=== PATIENT | female | born 1965 | race Caucasian/White ===

== ENCOUNTER 2016-12-26 17:56 | Inpatient (IN) | payer MEDICAID ==
[~2016-12-26] VITALS: Ht 160 cm; Wt 78.0 kg
[2016-12-26 19:20] LABS: Basophils # (auto) 0.1 uL; Basophils % (auto) 0.8 % (0.0-2.0); Eosinophils # (auto) 0.1 uL; Eosinophils % (auto) 0.7 % (0.0-7.0); Hematocrit 15.6 % (36.0-46.0); Lymphocytes # (auto) 1.9 uL; Lymphocytes % (auto) 17.7 % (10.0-50.0); Mean Corpuscular Hemoglobin 25.8 pg (28.0-32.0); Mean Corpuscular Hgb Conc. 31.2 g/dL (32.0-36.0); Mean Corpuscular Volume 82.6 fL (80.0-100.0); Mean Platelet Volume 8.6 fL (6.9-10.8); Monocytes # (auto) 0.6 uL; Monocytes % (auto) 5.7 % (0.0-12.0); Neutrophils # (auto) 8.3 uL; Neutrophils % (auto) 75.1 % (37.0-80.0); Nucleated Red Blood Cells % 0.7 %; Platelet Count (auto) 167 10^3/uL (140-450); Red Cell Distribution Width 17.9 % (11.8-14.3)
[2016-12-26 19:24] LABS: Hemoglobin 4.9 g/dL (12.2-16.2)
[2016-12-26 19:36] LABS: Albumin 2.4 g/dL (3.4-5.0); Bilirubin, Total 0.6 mg/dL (0.2-1.0); Calcium 7.8 mg/dL (8.5-10.1); Potassium 3.5 mmol/L (3.5-5.1); Total Protein 5.4 g/dL (6.4-8.2)
[2016-12-26 19:52] LABS: INR 1.24 (0.9-1.15); Partial Thromboplastin Time 29.2 sec (22.64-33.71); Prothrombin Time 13.6 sec (9.37-12.3)
[2016-12-27] VITALS (15 sets, daily range): BP systolic 113–157; BP diastolic 46–86
[2016-12-27] MEDS ORDERED: metroNIDAZOLE 500MG/100ML 100 ML IV ONE (00:15)
[2016-12-27] MEDS ORDERED: cefTRIAXone 1GM/50ML D5W 50 ML IV ONE (00:15)
[2016-12-27 00:25] LABS: Anisocytosis Slight; Hypochromia Slight; Ovalocytes FEW; Platelet Estimate Adequate
[2016-12-27] MEDS ORDERED: ONDANSETRON HCL 4 MG/2 ML VIAL IV ONE (02:00)
[2016-12-27 03:02] LABS: Urine Bilirubin Negative (Negative); Urine Blood Negative /uL (Negative); Urine Color Yellow (Yellow); Urine Glucose Normal (Normal); Urine Ketone Negative (Negative); Urine Nitrite Negative (Negative); Urine RBC <1 /hpf (0 - 4); Urine Squamous Epithelial Cell FEW /hpf (<5); Urine Urobilinogen Normal (Negative); Urine pH 5.5 (5.0-8.0)
[2016-12-27] MEDS ORDERED: SODIUM CHLORIDE 0.9% 1,000 ML IV SCH (03:32)
[2016-12-27] MEDS ORDERED: ONDANSETRON HCL 4 MG/2 ML VIAL IV PRN (03:45)
[2016-12-27] MEDS ORDERED: NITROGLYCERIN 0.4 MG SL TAB SL PRN (03:45)
[2016-12-27] MEDS ORDERED: ACETAMINOPHEN 325 MG TAB PO PRN (03:45)
[2016-12-27] MEDS ORDERED: CALCIUM GLUC 4.65meq/50ml D5AE 50 ML IV ONE (03:45)
[2016-12-27] MEDS: PANTOPRAZOLE 80 MG in SODIUM CHL 0.9% 60 ML IV SCH ×3 (03:45→22:03)
[2016-12-27] MEDS ORDERED: MORPHINE SULF INJ 2 MG/ML SYRINGE 1ML IV PRN ×2 (03:45)
[2016-12-27] MEDS ORDERED: PANTOPRAZOLE 40 MG/10 ML VIAL IV ONE (04:31)
[2016-12-27] MEDS ORDERED: metroNIDAZOLE 500MG/100ML 100 ML IV SCH (06:00)
[2016-12-27 06:24] LABS: Hematocrit 19.1 % (36.0-46.0)
[2016-12-27 06:33] LABS: Hemoglobin 6.3 g/dL (12.2-16.2)
[2016-12-27 06:37] LABS: INR 1.29 (0.9-1.15); Partial Thromboplastin Time 29.9 sec (22.64-33.71); Prothrombin Time 14.1 sec (9.37-12.3)
[2016-12-27] MEDS: FUROSEMIDE 20 MG TAB PO SCH (10:08)
[2016-12-27] MEDS: LISINOPRIL 10 MG TAB PO SCH (10:08)
[2016-12-27] MEDS: SODIUM CHLORIDE 0.9% 1,000 ML IV SCH (14:50)
[2016-12-27] MEDS ORDERED: PATIENTS OWN MEDICATION (simvastatin 20 MG) PO SCH ×2 (22:00)
[2016-12-27] MEDS ORDERED: ATORVASTATIN 20 MG TAB PO SCH (22:00)
[2016-12-27] MEDS ORDERED: cefTRIAXone 1GM/50ML D5W 50 ML IV SCH (22:00)
[2016-12-27 23:13] LABS: Hematocrit 30.5 % (36.0-46.0); Hemoglobin 10.3 g/dL (12.2-16.2)
[2016-12-28] VITALS: BP 124/86
[2016-12-28 04:24] VITALS: BP 145/67
[2016-12-28 06:31] LABS: Basophils # (auto) 0 uL; Basophils % (auto) 0.7 % (0.0-2.0); Eosinophils # (auto) 0.1 uL; Eosinophils % (auto) 1.9 % (0.0-7.0); Hematocrit 26.7 % (36.0-46.0); Hemoglobin 9.2 g/dL (12.2-16.2); Lymphocytes % (auto) 23.6 % (10.0-50.0); Mean Corpuscular Hgb Conc. 34.4 g/dL (32.0-36.0); Mean Corpuscular Volume 84.2 fL (80.0-100.0); Mean Platelet Volume 8.5 fL (6.9-10.8); Monocytes # (auto) 0.3 uL; Neutrophils # (auto) 2.8 uL; Neutrophils % (auto) 66.8 % (37.0-80.0); Nucleated Red Blood Cells % 0.3 %; Platelet Count (auto) 76 10^3/uL (140-450); Red Cell Distribution Width 15.8 % (11.8-14.3); White Blood Cell 4.2 10^3/uL (4.4-10.8)
[2016-12-28 07:02] LABS: Albumin 2.3 g/dL (3.4-5.0); BUN/Creatinine Ratio 40.4; Bilirubin, Total 1.1 mg/dL (0.2-1.0); Calcium 7.3 mg/dL (8.5-10.1); Magnesium 2.1 mg/dL (1.6-2.6); Potassium 3.1 mmol/L (3.5-5.1); Total Protein 5.1 g/dL (6.4-8.2)
[2016-12-28 08:00] VITALS: BP 134/72
[2016-12-28] MEDS: PANTOPRAZOLE 80 MG in SODIUM CHL 0.9% 60 ML IV SCH (09:45)
[2016-12-28] MEDS ORDERED: POTASSIUM CHL 20 Meq TABLET PO ONE (11:15)
[2016-12-28] MEDS: FUROSEMIDE 20 MG TAB PO SCH (11:24)
[2016-12-28] MEDS: LISINOPRIL 10 MG TAB PO SCH (11:24)
[2016-12-28 12:00] VITALS: BP 125/67
[2016-12-28 16:00] VITALS: BP 129/57
[2016-12-28] MEDS: SODIUM CHLORIDE 0.9% 1,000 ML IV SCH ×2 (18:00→23:49)
[2016-12-28 20:00] VITALS: BP 137/70
[2016-12-28] MEDS: PANTOPRAZOLE 40 MG/10 ML VIAL IV SCH (21:51)
[2016-12-29] VITALS: BP 141/77
[2016-12-29 04:00] VITALS: BP 131/61
[2016-12-29 05:47] LABS: Hematocrit 26.5 % (36.0-46.0); Hemoglobin 9.1 g/dL (12.2-16.2)
[2016-12-29 08:00] VITALS: BP 137/67
[2016-12-29] MEDS ORDERED: SPIRONOLACTONE 25 MG TAB PO ONE (09:45)
[2016-12-29] MEDS: PANTOPRAZOLE 40 MG/10 ML VIAL IV SCH ×2 (10:00→21:49)
[2016-12-29] MEDS: FUROSEMIDE 20 MG TAB PO SCH (11:27)
[2016-12-29] MEDS: POTASSIUM CHL 20 Meq TABLET PO SCH (11:27)
[2016-12-29] MEDS: LISINOPRIL 10 MG TAB PO SCH (11:28)
[2016-12-29 11:57] VITALS: BP 108/58
[2016-12-29 16:00] VITALS: BP 121/62
[2016-12-29] MEDS: SODIUM CHLORIDE 0.9% 1,000 ML IV SCH (16:29)
[2016-12-29] MEDS: SPIRONOLACTONE 25 MG TAB PO SCH (18:00)
[2016-12-29 20:00] VITALS: BP 111/67
[2016-12-30] VITALS (7 sets, daily range): BP systolic 121–140; BP diastolic 53–72
[2016-12-30] MEDS: SPIRONOLACTONE 25 MG TAB PO SCH ×2 (06:18→18:19)
[2016-12-30 06:46] LABS: Basophils # (auto) 0 uL; Basophils % (auto) 0.8 % (0.0-2.0); Eosinophils # (auto) 0.1 uL; Eosinophils % (auto) 2.1 % (0.0-7.0); Hematocrit 26.2 % (36.0-46.0); Hemoglobin 8.8 g/dL (12.2-16.2); Lymphocytes # (auto) 1.1 uL; Lymphocytes % (auto) 28.8 % (10.0-50.0); Mean Corpuscular Hemoglobin 28.8 pg (28.0-32.0); Mean Corpuscular Hgb Conc. 33.5 g/dL (32.0-36.0); Mean Platelet Volume 8.6 fL (6.9-10.8); Monocytes # (auto) 0.3 uL; Monocytes % (auto) 7.9 % (0.0-12.0); Neutrophils # (auto) 2.3 uL; Neutrophils % (auto) 60.4 % (37.0-80.0); Nucleated Red Blood Cells % 0.1 %; Platelet Count (auto) 73 10^3/uL (140-450); Red Cell Distribution Width 16.2 % (11.8-14.3); White Blood Cell 3.9 10^3/uL (4.4-10.8)
[2016-12-30 06:49] LABS: INR 1.2 (0.9-1.15); Partial Thromboplastin Time 27.8 sec (22.64-33.71); Prothrombin Time 13.1 sec (9.37-12.3)
[2016-12-30 06:54] LABS: Albumin 2.2 g/dL (3.4-5.0); Calcium 7.4 mg/dL (8.5-10.1); Potassium 3.4 mmol/L (3.5-5.1)
[2016-12-30 07:05] LABS: Bilirubin, Total 0.8 mg/dL (0.2-1.0); Total Protein 4.8 g/dL (6.4-8.2)
[2016-12-30] MEDS ORDERED: LIDOCAINE VISCOUS 2% 15ML UD ONE (08:18)
[2016-12-30] MEDS ORDERED: MIDAZOLAM HCL 5 MG/ML-1ML VIAL ONE (08:18)
[2016-12-30] MEDS ORDERED: SODIUM CHLORIDE LOCK 10 ML ONE (08:18)
[2016-12-30] MEDS ORDERED: fentaNYL CITRATE 100 MCG/2 ML VL ONE (08:19)
[2016-12-30] MEDS ORDERED: diphenhdrAMINE HCL 50 MG/1 ML VL ONE (08:19)
[2016-12-30] MEDS: POTASSIUM CHL 20 Meq TABLET PO SCH (10:48)
[2016-12-30] MEDS: SODIUM CHLORIDE 0.9% 1,000 ML IV SCH (10:48)
[2016-12-30] MEDS: LISINOPRIL 10 MG TAB PO SCH (10:48)
[2016-12-30] MEDS: FUROSEMIDE 20 MG TAB PO SCH (10:48)
[2016-12-30] MEDS: PANTOPRAZOLE 40 MG/10 ML VIAL IV SCH (10:50)
[2016-12-30] MEDS ORDERED: POTASSIUM CHL 20 Meq TABLET PO ONE (12:30)
[2016-12-31] VITALS (9 sets, daily range): BP systolic 100–150; BP diastolic 57–75
[2016-12-31] MEDS: SODIUM CHLORIDE 0.9% 1,000 ML IV SCH (01:50)
[2016-12-31] MEDS: SPIRONOLACTONE 25 MG TAB PO SCH ×2 (05:39→17:47)
[2016-12-31 07:27] LABS: Hematocrit 26.1 % (36.0-46.0); Hemoglobin 8.5 g/dL (12.2-16.2)
[2016-12-31] MEDS: LISINOPRIL 10 MG TAB PO SCH (09:17)
[2016-12-31] MEDS: FUROSEMIDE 20 MG TAB PO SCH (09:18)
[2016-12-31] MEDS: POTASSIUM CHL 20 Meq TABLET PO SCH (09:18)
[2016-12-31] MEDS ORDERED: POTASSIUM CHL 20 Meq TABLET PO ONE (12:30)
[2016-12-31] MEDS ORDERED: LACT10SO3 PO ×2 (12:43→13:03)
[2016-12-31] MEDS ORDERED: PROP60CA8 PO (12:43)
[2016-12-31] MEDS ORDERED: FUR20T PO (13:08)
[2016-12-31] MEDS ORDERED: SPIR25TA88 PO (13:08)
[2016-12-31] MEDS ORDERED: POTA10TA34 PO (13:08)
[2016-12-31] MEDS ORDERED: LISI10TA6 PO (13:24)
[2016-12-31] MEDS ORDERED: FERR325T PO (13:26)
[2016-12-31] MEDS ORDERED: ESCI10TA PO (13:26)
[2016-12-31] MEDS ORDERED: SIMV20TA90 PO (13:26)
[2016-12-31] MEDS ORDERED: POTA10TA51 PO (13:28)
[2016-12-31] MEDS ORDERED: ASPI325T4 PO (13:28)
[2016-12-31] MEDS ORDERED: FURO20TA3 PO (13:28)
== END 2016-12-31 19:30 | disposition home or self-care (01) | DRG 253 ==
LOC: EDBD 17:56 → ER 17:56 → TELE 17:57 → DOU IN ICU 12-27 05:07 → TELE-CENTR 12-30 16:00
PROVIDERS: ADMIT Nurse Practitioner; ATTEND Internal Medicine
PROC: 30233N1 Transfusion of Nonautologous Red Blood Cells into Peripheral Vein, Percutaneous Approach (ICD-10-PCS; 2016-12-27)
PROC: 0W9G3ZZ Drainage of Peritoneal Cavity, Percutaneous Approach (ICD-10-PCS; 2016-12-30)
PROC: 0DJ08ZZ Inspection of Upper Intestinal Tract, Via Natural or Artificial Opening Endoscopic (ICD-10-PCS; principal; 2016-12-30 13:15)
DX: K92.0 Hematemesis (principal); E43 Unspecified severe protein-calorie malnutrition; D68.4 Acquired coagulation factor deficiency; R18.8 Other ascites; K76.6 Portal hypertension; D62 Acute posthemorrhagic anemia; K74.60 Unspecified cirrhosis of liver; K57.30 Diverticulosis of large intestine without perforation or abscess without bleeding; E87.6 Hypokalemia; F17.210 Nicotine dependence, cigarettes, uncomplicated; K31.89 Other diseases of stomach and duodenum; Z68.30 Body mass index [BMI] 30.0-30.9, adult; K92.1 Melena
CPT/HCPCS: 36415; 71010; 74176; 76705; 76942; 80053; 81001; 82140; 83690; 83735; 84132; 85014; 85018; 85025; 85610; 85730; 86850; 86900; 86901; 86920; 87081; 93005; 96365; 96367; 96368; 96375; C9113; J0610; J0696; J2250; J2405; J3490